=== PATIENT | female | born 1985 | race Hispanic/Latino ===

== ENCOUNTER → 2023-06-05 08:58 | Outpatient (REF) | payer BC, SELFPAY | LOC: PNTC 08:58 | PROVIDERS: ATTENDING PHYSICIAN Obstetrics & Gynecology | DX: O09.529 Supervision of elderly multigravida, unspecified trimester (principal) | CPT/HCPCS: 76816 ==

== ENCOUNTER 2023-07-17 19:27 | Inpatient (IN) | payer BC, SELFPAY ==
[2023-07-17 19:50] VITALS: BMI 25.6
[2023-07-17 20:16] LABS: % Basophils 0.4 % (0-2); % Eosinophils 0.6 % (0-6); % Immature Granulocytes 0.2 % (0-0.5); % Lymphocytes 23.6 % (20.5-51.1); % Monocytes 5.3 % (1.7-9.3); % Neutrophils 69.9 % (42.2-75.2); Absolute Eosinophils 0.1 10^3/uL (0-0.7); Absolute Monocytes 0.5 10^3/uL (0.1-0.6); Absolute Neutrophils 5.9 10^3/uL (1.4-6.5); Hematocrit 34.1 % (37.0-47.0); Hemoglobin 11.5 g/dL (12.0-16.0); Mean Corp Hgb Conc. 33.7 g/dL (33.0-37.0); Mean Corpuscular Hgb 28.1 pg (27.0-31.0); Mean Corpuscular Volume 83.4 fL (81.0-99.0); Mean Platelet Volume 10.1 fL (7.4-10.4); Nucleated Red Blood Cells % 0 %; Platelet Count 232 10^3/uL (130-400); Red Blood Cell Count 4.09 10^6/uL (4.20-5.40); Red Cell Dist. Width 13.9 % (11.5-14.5); White Blood Cell Count 8.4 10^3/uL (4.8-10.8)
[2023-07-17] MEDS: CYTOTEC 25 MICROGRAM VAG (20:18)
[2023-07-17 20:30] VITALS: BP 123/82
[2023-07-18] MEDS: CYTOTEC 50 MICROGRAM PO (00:11)
[2023-07-18] MEDS: MORPHINE SULFATE 2 MG IV (01:17)
[2023-07-18] MEDS: LR 1000 IV ×2 (01:26→04:53)
[2023-07-18] MEDS: BRETHINE 250 MCG SC (02:01)
[2023-07-18] MEDS: BICITRA 30 ML PO (03:08)
[2023-07-18] MEDS: TYLENOL 1000 MG PO (03:08)
[2023-07-18] MEDS: CLEOCIN 50 IV (03:08)
[2023-07-18 03:56] LABS: B.E. Cord ABG -4.9 mMOL/L; Cord ABG Comment CORD BLOOD; HCO3 Cord ABG 24.1 mmol/L; O2 Saturation % Cord ABG 22.6 %; PCO2 Cord ABG 59 mmHg; PO2 Cord ABG 15 mmHg; pH Cord ABG 7.22
[2023-07-18 03:59] LABS: B.E. Cord ABG -4.8 mMOL/L; HCO3 Cord ABG 22.9 mmol/L; O2 Saturation % Cord ABG 43.3 %; PCO2 Cord ABG 51 mmHg; PO2 Cord ABG 25 mmHg; pH Cord ABG 7.26
[2023-07-18 04:29] VITALS: BP 123/82; BP 127/68
[2023-07-18 04:30] VITALS: BP 127/69
[2023-07-18 04:45] VITALS: BP 114/58
[2023-07-18] MEDS: PITOCIN 30 UNITS/NSS 500 ML IV (04:51)
[2023-07-18] MEDS: TORADOL 15 MG IV ×3 (05:32→18:03)
[2023-07-18] MEDS: MYLICON 80 MG PO (10:16)
[2023-07-18] MEDS: PRENATAL PLUS 1 TABLET PO (10:16)
[2023-07-18] MEDS: PERCOCET 5/325 1 TABLET PO ×3 (10:16→21:31)
[2023-07-18] MEDS: SENOKOT-S 1 TABLET PO (10:16)
[2023-07-19] MEDS: TORADOL 15 MG IV (00:20)
[2023-07-19] MEDS: FLUSH (NSS) 3 FLUSH IV (00:22)
[2023-07-19 04:34] LABS: Hemoglobin 9.1 g/dL (12.0-16.0); Mean Corpuscular Hgb 28.4 pg (27.0-31.0); Mean Corpuscular Volume 81.3 fL (81.0-99.0); Mean Platelet Volume 10.1 fL (7.4-10.4); Platelet Count 194 10^3/uL (130-400); Red Cell Dist. Width 14.1 % (11.5-14.5); White Blood Cell Count 10.1 10^3/uL (4.8-10.8)
[2023-07-19] MEDS: MOTRIN 600 MG PO ×3 (06:41→17:57)
[2023-07-19] MEDS: TYLENOL 650 MG PO ×3 (06:42→17:57)
--- NOTE | 2023-07-19 07:29 | W.PN.ANS.POP ---
Anesthesia Post Operative
- Anesthesia Post Op Note
Vital Signs Stable-See Nursing Note: Yes
Airway Patent: Yes
Adequate Pain Control: Yes
Change in Mental Status: No
Current Postoperative Nausea & Vomiting: No
Anesthesia Complications: No
General Anesthetic Recall: No
Unplanned Admission: No
Post Op Hydration Adequate: Yes
[2023-07-19] MEDS: PRENATAL PLUS 1 TABLET PO (08:13)
[2023-07-19] MEDS: MYLICON 80 MG PO (11:44)
[2023-07-19] MEDS: PERCOCET 5/325 1 TABLET PO (20:45)
[2023-07-20] MEDS: MYLICON 80 MG PO (04:36)
[2023-07-20] MEDS: MOTRIN 600 MG PO ×2 (04:36→10:09)
[2023-07-20] MEDS: PERCOCET 5/325 1 TABLET PO (04:36)
[2023-07-20] MEDS: FEOSOL 325 MG PO (08:03)
[2023-07-20] MEDS: SENOKOT-S 1 TABLET PO (08:03)
[2023-07-20] MEDS: PRENATAL PLUS 1 TABLET PO (08:04)
[2023-07-20] MEDS: TYLENOL 650 MG PO (09:58)
--- NOTE | 2023-07-20 18:49 | W.DS.TRANS ---
DC Summary - Manager Front Office
-
Discharge Instructions:
Discharge Diagnosis/Procedures delivery
Instructions:
Stand-Alone Forms: LDRP Delivery
Changes to Home Medications: No
Discharge Medications:
DC Medications w/original date entered in [facility]
vit no.95-ferrous fumarate 28 mg-folic acid 800 mcg tablet () 1 ea PO Daily Supplement 09/08/20
acetaminophen 500 mg tablet 1,000 mg PO Q6H PRN backache 07/17/23
ferrous sulfate 325 mg (65 mg iron) tablet (FeroSul) 325 mg PO DAILY #0 tabs 07/20/23
ibuprofen 600 mg tablet 600 mg PO Q6HPRN PRN cramps #30 tabs 07/20/23
sennosides 8.6 mg-docusate sodium 50 mg tablet (Stool Softener-Stimulant Laxative) 1 tab PO DAILYPRN PRN constipation #0 tabs 07/20/23
simethicone 80 mg chewable tablet 80 mg PO TIDPRN PRN flatulence #0 tabs 07/20/23
Home Medication Changes
Pending Results: Yes
Additional Pending Results:
placenta path
Total time spent discharging patient (in min): 20
[2023-07-21 11:55] LABS: Syphilis/T. pallidum Ab Reflex Negative (Negative)
== END 2023-07-20 14:37 | disposition home or self-care (01) | DRG 787 ==
LOC: LDRP 19:27
PROVIDERS: ADMITTING PHYSICIAN Obstetrics & Gynecology
PROC: 3E0P7VZ Introduction of Hormone into Female Reproductive, Via Natural or Artificial Opening (ICD-10-PCS; 2023-07-17)
PROC: 10D00Z1 Extraction of Products of Conception, Low, Open Approach (ICD-10-PCS; 2023-07-18)
PROC: 3E0DXGC Introduction of Other Therapeutic Substance into Mouth and Pharynx, External Approach (ICD-10-PCS; 2023-07-18)
DX: O48.0 Post-term pregnancy (principal); D62 Acute posthemorrhagic anemia; Z3A.40 40 weeks gestation of pregnancy; Z37.0 Single live birth; O76 Abnormality in fetal heart rate and rhythm complicating labor and delivery; F11.11 Opioid abuse, in remission; O90.81 Anemia of the puerperium; O69.81X0 Labor and delivery complicated by cord around neck, without compression, not applicable or unspecified; Z88.0 Allergy status to penicillin; Z87.442 Personal history of urinary calculi; Z86.19 Personal history of other infectious and parasitic diseases
CPT/HCPCS: 88307; 36415; 82803; 85025; 85027; 86780; 86850; 86900; 86901

== ENCOUNTER 2023-10-31 19:56 | Emergency (ER) | payer BC, SELFPAY ==
[2023-10-31 20:00] VITALS: BP 150/91
[2023-10-31 20:13] LABS: % Basophils 0.6 % (0-2); % Lymphocytes 28.5 % (20.5-51.1); % Monocytes 8.5 % (1.7-9.3); % Neutrophils 62.4 % (42.2-75.2); Absolute Monocytes 0.3 10^3/uL (0.1-0.6); Absolute Neutrophils 2.2 10^3/uL (1.4-6.5); Hematocrit 36.6 % (37.0-47.0); Hemoglobin 12.6 g/dL (12.0-16.0); Mean Corp Hgb Conc. 34.4 g/dL (33.0-37.0); Mean Corpuscular Hgb 28.3 pg (27.0-31.0); Mean Corpuscular Volume 82.1 fL (81.0-99.0); Mean Platelet Volume 9.7 fL (7.4-10.4); Nucleated Red Blood Cells % 0 %; Platelet Count 198 10^3/uL (130-400); Red Blood Cell Count 4.46 10^6/uL (4.20-5.40); Red Cell Dist. Width 11.5 % (11.5-14.5); White Blood Cell Count 3.5 10^3/uL (4.8-10.8)
--- NOTE | 2023-10-31 20:33 | ED.GENMED ---
History of Present Illness
General
Chief Complaint: Fatigue
Source: patient
Exam Limitations: none
Time Seen by Provider: 10/31/23 20:19
Nursing documentation reviewed up to this point in time: agreed with
History of Present Illness
History of Present Illness:
38 yo female presents to the emergency department c/o joint pain and chills for 3 days.
Past History
Past History
ED Past Medical History: None
ED Past Surgical History:
Social History
Tobacco: Non-smoker
Drug: None
Personal:
Living: with family
Review of Systems
Review of Systems
Allergies reviewed?: Yes
All Other Systems: Not applicable
Constitutional: Reports chills
EENT: Reports no symptoms
Respiratory: Reports no symptoms
Cardiac: Reports no symptoms
ABD/GI: Reports no symptoms
: Reports no symptoms
Musculoskeletal: Reports joint pain
Skin: Reports no symptoms
Neurological: Reports no symptoms
Endocrine: Reports no symptoms
Hematologic/Lymphatic: Reports no symptoms
Psychiatric: Reports no symptoms
Phy Exam
Physical Exam
Physical Exam:
Physical Exam
General: no apparent distress, not acutely ill
Neck: supple. no meningeal signs. normal posterior pharynx
Heart: s1/s2 regular rate and rhythm, no murmur. equal radial
pulses.
HEENT: Pupils equal round reactive to light, EOMI
Lungs: no acute respiratory distress. clear bilaterally
Abdomen: normal bowel sounds. not tender. no CVAT
Neuro: alert and oriented. no focal neurological deficits cranial nerves II through XII intact
Skin: no rash
Psychiatric: well kept. interactive and cooperative
Extremities: no edema. no calf tenderness. negative homans. good distal pulses
Course
Orders/Labs/Results
Orders:
Orders
10/31/23 20:06
Complete Blood Count/With Diff Urgent
Comprehensive Metabolic Panel Urgent
10/31/23 20:35
Lyme Progressive Urgent
Monotest Urgent
10/31/23 20:36
COVID-19 Antigen Urgent
Source: Nasal Swab
Influenza A+B Rapid Molecular Urgent
RAYA Source: Nasal Swab
Specimen Description:
10/31/23 21:11
Acetaminophen [Tylenol] 650 mg PO NOW STA
Abnormal Lab Results
10/31/23 10/31/23
20:06 20:35
WBC 3.5 L 10^3/uL
(4.8-10.8)
Hct 36.6 L %
(37.0-47.0)
Absolute Lymphs (auto) 1.0 L 10^3/uL
(1.2-3.4)
Carbon Dioxide 21 L mmol/L
(22-30)
Glucose 151 H mg/dl
(70-99)
AST 44 H U/L
(14-36)
ALT 50 H U/L
(0-35)
Monoscreen Positive A
(Negative)
10/31/23 20:06
10/31/23 20:06
Vital Signs
Initial and Last Documented VS:
Initial Vital Signs
Temp Pulse Resp BP Pulse Ox
100.3 F 100 16 150/91 97
10/31/23 20:00 10/31/23 20:00 10/31/23 20:00 10/31/23 20:00 10/31/23 20:00
Last Documented Vital Signs
Temp Pulse Resp BP Pulse Ox
100.5 F H 98 14 121/94 99
10/31/23 20:39 10/31/23 20:39 10/31/23 20:39 10/31/23 20:39 10/31/23 20:39
MDM/Problems Addressed
Differential Diagnosis Includes:
Wood[place], Lyme's, COVID
MDM/Problems Addressed:
38-year-old female with mono. Abdomen exam benign. Vital signs stable. Return precautions given. Discharge precautions given
*Pulse Oximetry
Patient hypoxic: no
*EKG
Interpreted by ED Provider?: NA
*Critical Care Note
Total Time (30-74mins, 75-104mins- exclusive of procedures): Not Applicable
Patient Management
Social determinants of health affecting care: Living situation and Strong social support
Escalation/DeEscalation of care consider admission/obs:
Admit not indicated
ED Attending Note
-
Portions of this chart may have been created with voice recognition software.� Occasional wrong word or��sound alike� substitutions may have occurred due to the inherent limitations of voice recognition software.
Discharge Plan
Departure
Patient Disposition: Home (Routine Discharge)
Date of Disposition: 10/31/23
Time of Disposition: 21:13
Patient with high blood pressure during this ER visit?: Yes
Condition: Good
Discharge Problem:
Mononucleosis
Instructions: Mononucleosis, BLOOD PRESSURE
Prescriptions:
No Action
PN cmb#95-ferrous fumarate-FA [] 1 EACH tablet
1 ea PO Daily
acetaminophen 500 mg Tablet
1,000 mg PO Q6H PRN (Reason: backache)
sennosides-docusate sodium [Stool Softener-Stimulant Laxat] 8.6-50 mg Tablet
1 tab PO DAILYPRN PRN (Reason: constipation) Qty: 0 0RF
ferrous sulfate [FeroSul] 325 mg (65 mg iron) Tablet
325 mg PO DAILY Qty: 0 0RF
ibuprofen 600 mg Tablet
600 mg PO Q6HPRN PRN (Reason: cramps) Qty: 30 1RF
simethicone 80 mg Tablet,Chewable
80 mg PO TIDPRN PRN (Reason: flatulence) Qty: 0 0RF
Activity Restrictions/Additional Instructions:
Follow up with primary care in 3-5 days.
Interventions
Interventions:
*Risk Screen - Suicide Last Done: 10/31/23 20:00
*General Assessment Last Done: 10/31/23 20:00
*Neglect/Abuse Screening Last Done: 10/31/23 20:00
ED- Fall Risk Assessment Last Done: 10/31/23 20:37
Discharge Date and Time
Print Language: SWEDISH
[2023-10-31 20:34] LABS: ALT (SGPT) 50 U/L (0-35); AST (SGOT) 44 U/L (14-36); Albumin 4.1 g/dl (3.5-5.0); Alkaline Phosphatase 74 U/L (38-126); Blood Urea Nitrogen 11 mg/dl (7-17); Calcium 9.3 mg/dl (8.4-10.2); Carbon Dioxide 21 mmol/L (22-30); Chloride 103 mmol/L (98-107); Glucose 151 mg/dl (70-99); Potassium 3.6 mmol/L (3.5-5.1); Sodium 136 mmol/L (135-145); Total Bilirubin 0.3 mg/dl (0.2-1.3); Total Protein 7.2 g/dl (6.3-8.2); eGFR > 60.00
[2023-10-31 20:37] VITALS: BP 121/94; BMI 23.4
[2023-10-31 20:39] VITALS: BP 121/94
[2023-10-31 20:53] LABS: COVID-19 Antigen Negative (Negative)
[2023-10-31 21:00] VITALS: BP 116/69
[2023-10-31 21:05] LABS: Monotest Positive (Negative)
[2023-10-31] MEDS: TYLENOL 650 MG PO (21:24)
[2023-11-01 15:07] LABS: Lyme Antibody Screen, EIA Negative (Negative)
== END 2023-10-31 22:06 | disposition home or self-care (01) ==
LOC: EMR 19:56
PROVIDERS: Physician Assistant; EMERGENCY PHYSICIAN Emergency Medicine; FAMILY PHYSICIAN Student in an Organized Health Care Education/Training Program
DX: B27.90 Infectious mononucleosis, unspecified without complication (principal); Z11.52 Encounter for screening for COVID-19; R53.83 Other fatigue; R03.0 Elevated blood-pressure reading, without diagnosis of hypertension; Z88.0 Allergy status to penicillin
CPT/HCPCS: 99283; 80053; 85025; 86308; 86618; 87502; 87811